=== PATIENT | male | born 1985 | race Caucasian/White ===

== ENCOUNTER 2018-09-06 07:06 | Day surgery (SDC) | payer OTHER ==
[2018-09-06] MEDS ORDERED: ceFAZolin 2 GM/50 ML 2 GM/50 ML BAG IV ONE (07:14)
[2018-09-06] MEDS ORDERED: LACTATED RINGERS 1,000 ML IV ONE (07:37)
[2018-09-06] MEDS ORDERED: LIDOCAINE 1% 50 ML MDV ONE (08:02)
[2018-09-06] MEDS ORDERED: BUPIVACAINE 0.5%-EPI 1:200000 PF 30 ML VIAL ONE (08:02)
--- NOTE | 2018-09-06 08:03 | ANESTHESIA ---
Pre-Anesthesia VS, & Labs - Diagnosis inguinal hernia left - Procedure left inguinal hernia repair Vital Signs: Temp Pulse Resp BP Pulse Ox 36.8 C 84 18 133/85 H 97 09/06/18 07:59 09/06/18 07:59 09/06/18 07:59 09/06/18 07:59 09/06/18 07:59 Height 5 ft 9 in Weight (kg) 100.9 kg - NPO >8 hours Home Medications and Allergies Home Medications: Ambulatory Orders Atorvastatin [Lipitor] 10 mg PO QPM 08/26/18 Cholecalciferol (Vitamin D3) [Vitamin D3] 1,000 unit PO DAILY 08/26/18 Ibuprofen 800 mg PO Q8H PRN 08/26/18 Omeprazole 20 mg PO DAILY 08/26/18 Atorvastatin [Lipitor] 10 mg PO QPM 08/26/18 Cholecalciferol (Vitamin D3) [Vitamin D3] 1,000 unit PO DAILY 08/26/18 Ibuprofen 800 mg PO Q8H PRN 08/26/18 Omeprazole 20 mg PO DAILY 08/26/18 Allergies/Adverse Reactions: Allergies Allergy/AdvReac Type Severity Reaction Status Date / Time No Known Drug Allergies Allergy Verified 08/26/18 12:28 Anes History & Medical History - Anesthetic History Anesthesia Complications: reports: No previous complications Family history of Anesthesia Complications: Denies Family history of Malignant Hyperthermia: Denies - Medical History Cardiovascular: reports: High cholesterol Pulmonary: reports: Sleep apnea, CPAP use Gastrointestinal: reports: GERD Urinary: reports: None Musculoskeletal: reports: None Endocrine/Autoimmune: reports: None Skin: reports: None - Surgical History Orthopedic: Other Exam General: Alert, Oriented x3, Cooperative, No acute distress Dental: Other (caps) Mouth Openin Fingerbreadth Neck Mobility: Normal Mallampati classification: III Thyromental Distance: greater than 6 cm Respiratory: Lungs clear, Normal breath sounds, No respiratory distress, No accessory muscle use Cardiovascular: Regular rate, Normal S1, Normal S2, No murmurs Mental/Cognitive Status: Alert/Oriented X3, Normal for patient Plan Anesthesia Type: General Consent for Procedure(s) Verified and Reviewed: Yes Code Status: Attempt Resuscitation ASA classification: 2-Mild systemic disease Is this case an emergency?: No
[2018-09-06] MEDS ORDERED: ceFAZolin 1 GM VIAL ONE (09:19)
[2018-09-06] MEDS ORDERED: BUPIVACAINE 0.5%-EPI 1:200000 PF 30 ML VIAL SUBQ ONE ×2 (09:36)
[2018-09-06] MEDS ORDERED: LIDOCAINE 1% 50 ML MDV SUBQ ONE ×2 (09:36)
[2018-09-06] MEDS ORDERED: ceFAZolin 1 GM VIAL IR ONE (09:36)
[2018-09-06] MEDS ORDERED: ONDANSETRON 4 MG/2 ML VIAL IVP ONE (10:00)
[2018-09-06] MEDS ORDERED: LIDOCAINE-MPF 2% 5 ML VIAL IM ONE (10:00)
[2018-09-06] MEDS ORDERED: PROPOFOL 200 MG/20 ML VIAL IVP ONE (10:00)
[2018-09-06] MEDS ORDERED: fentaNYL 100 MCG/2 ML VIAL IVP ONE (10:00)
[2018-09-06] MEDS ORDERED: KETOROLAC 30 MG/ML VIAL IVP ONE (10:00)
[2018-09-06] MEDS ORDERED: ceFAZolin 2 GM/50 ML BAG IV ONE (10:00)
[2018-09-06] MEDS ORDERED: ACETAMINOPHEN 325 MG TABLET PO PRN (10:36)
[2018-09-06] MEDS ORDERED: oxyCODONE 5 MG TABLET PO PRN (10:36)
[2018-09-06] MEDS ORDERED: ONDANSETRON 4 MG/2 ML VIAL IVP PRN (10:36)
[2018-09-06] MEDS ORDERED: IBUPROFEN 600 MG TABLET PO PRN (10:36)
[2018-09-06 11:33] VITALS: BP 112/78
[2018-09-06] MEDS ORDERED: oxyCODONE 5 MG TABLET ONE (11:44)
--- NOTE | 2018-09-07 16:07 | OPERATIVE REPORT ---
DATE OF SERVICE: 09/06/2018 Physician: Gianfranco Oro MD PREOPERATIVE DIAGNOSIS: Symptomatic left inguinal hernia. POSTOPERATIVE DIAGNOSIS: Symptomatic left inguinal hernia, indirect. PROCEDURE PERFORMED: Open repair of same with polypropylene mesh. ANESTHESIA: General plus local by [place] CRNA. SURGEON: Gianfranco Oro MD. ESTIMATED BLOOD LOSS: 10 mL. COMPLICATIONS: None. FINDINGS: A moderate-sized indirect left inguinal hernia was present. There was extensive scarring present in the spermatic cord associated with the hernia sac. There was no evidence of direct or fem oral hernia. INDICATIONS FOR PROCEDURE: The patient is a 32-year-old gentleman with the recent onset of a painful left groin bulge. Examination revealed a reducible left inguinal hernia. He was advised to undergo repair with prosthetic mesh to reduce the risk of recurrence via the traditional open approach. TECHNIQUE: After informed consent, the patient was taken to the operating room where he was placed u nder general anesthesia by [place] CRNA. Preoperative preparation included administration of 2 grams cefazolin intravenously within an hour of the incision and application of sequential calf compression boots. The left groin had been clipped in the preoperative area and was prepared with Ch loraPrep solution and draped in the usual sterile fashion. A left groin block was instituted using a 50:50 combination of 1% lidocaine plain and 0.5% Marcaine with epinephrine, a total of 30 mL of the mixture was used. Transverse incision was made in the skin lines of the left groin beginning above the pubic tubercle, extending laterally for approximately 5 cm. Hemostasis achieved with electrocautery and 2-0 Vicryl t ies. Incision carried down through subcutaneous tissue until the external oblique aponeurosis was id entified and was incised along the lines of its fibers in such a manner as to open the external ring and expose the internal ring. The spermatic cord was mobilized and encircled with a Delphos drain. The ilioinguinal nerve was searched for, but was not identified within the inguinal canal. The cord was carefully dissected, isolating the moderate-sized indirect sac and dissecting free from surroundi ng cord structures to the level of the internal ring. This was somewhat difficult because of extensi ve scarring; however, eventually the sac was freed. It was opened and a finger inserted in the perit may cavity. A search for direct and femoral hernias made and none were identified. The hernia sac was twisted and doubly highly ligated with 3-0 silk suture ligatures. Excess hernia sac was amputat ed and discarded. Ethibond 2-0 sutures were used to close the lateral border of the internal ring af ter hemostasis was assured. The wound was irrigated with antibiotic solution containing 1 gram of ce fazolin per liter, following which a precut slotted oval-shaped expanded polypropylene mesh was broug ht onto the field and placed over the inguinal floor and was secured in place with continuous 3-0 Pro daryl sutures, securing the mesh to the shelving edge of Poupart's ligament inferiorly and to the inte rnal oblique aponeurosis superolaterally and to the lateral border of the rectus sheath medially. Ca re was taken to avoid excessive tightening of the mesh around the cord at the level of the internal r ing. After hemostasis was assured, the wound was again irrigated with antibiotic solution, following which wound closure was accomplished in layers using continuous 2-0 Vicryl to reapproximate the external o blique aponeurosis overlying the cord, followed by continuous 3-0 Vicryl for Yola's fascia, followe d by 4-0 Monocryl subcuticular skin closure, followed by Dermabond. Anesthesia was terminated and krysta hernandez was transferred to the recovery room in satisfactory condition. Sponge and needle counts were correct x2. No drains were used. TD: 09/07/2018 13:26
== END 2018-09-06 07:07 | disposition home or self-care (01) ==
LOC: SDS 07:06
PROVIDERS: ATTEND Internal Medicine Gastroenterology
PROC: 0YU60JZ Supplement Left Inguinal Region with Synthetic Substitute, Open Approach (ICD-10-PCS; principal; 2018-09-06 08:15)
DX: K40.90 Unilateral inguinal hernia, without obstruction or gangrene, not specified as recurrent (principal); K21.9 Gastro-esophageal reflux disease without esophagitis; G47.33 Obstructive sleep apnea (adult) (pediatric); E78.5 Hyperlipidemia, unspecified; F17.210 Nicotine dependence, cigarettes, uncomplicated; E66.9 Obesity, unspecified; Z68.31 Body mass index [BMI] 31.0-31.9, adult
CPT/HCPCS: 49505; A9270; C1781; J0690; J7120